=== PATIENT | female | born 2000 | race Caucasian/White ===

== ENCOUNTER 2018-07-29 14:40 | Outpatient (CLI) | payer OTHER, MEDICAID, SELFPAY ==
[2017-05-11 03:22] VITALS: BMI 20.6
[2018-07-29 15:02] VITALS: BMI 24.0
[2018-07-29 15:28] LABS: ROM Internal Control Test YES-OK TO RESULT pt. (Internal QC); ROM Patient Test Negative (Negative)
--- NOTE | 2018-07-30 00:35 | OB.TRI.NOTE ---
History of Present Illness Was patient seen by the physician?: No Reason For Visit: RULE OUT LABOR Date of Service: 07/29/18 Final DANIELE: 08/04/18 Gestational age: 39 Weeks and 2 Days Allergies No Known Allergies Allergy (Verified 07/29/18 15:04) Laboratory Studies: Laboratory Tests 07/29/18 Range/Units 15:00 Vag Amniotic Fld Detect Negative (Negative) NST - FHR Rate Baby A Baseline: 135 Variability:: Moderate Accelerations:: 15 x 15 Decelerations:: Variable NST Reactive:: Yes Uterine Activity:: irregular
== END 2018-07-29 16:00 | disposition home or self-care (01) ==
LOC: WPOUT 14:48 → WP 14:48
PROVIDERS: Referring Provider Obstetrics & Gynecology; Visit Provider Obstetrics & Gynecology
DX: O47.1 False labor at or after 37 completed weeks of gestation (principal); O76 Abnormality in fetal heart rate and rhythm complicating labor and delivery; Z3A.39 39 weeks gestation of pregnancy
CPT/HCPCS: 59025; 59050; 84112; 99218; G0378

== ENCOUNTER 2018-08-04 15:05 | Inpatient (IN) | payer OTHER, MEDICAID, SELFPAY ==
[2018-08-04] MEDS: Lactated Ringers 1,000 ML 50 ML IV ×2 (15:30→18:17)
[2018-08-04] MEDS: Lactated Ringers 1,000 ML 200 ML IV (15:30)
[2018-08-04 16:09] VITALS: BMI 24.1
--- NOTE | 2018-08-04 16:28 | PCM.HP.OB ---
History Date of Admission: 08/04/18 Final DANIELE: 08/04/18 Final DANIELE Source: US <20 weeks Gestational age: 40 Weeks and 0 Days History of this : This is a 18 year-old, G 1P0 @ 40 wks c/o contractions- pt was found to be in labor- admitted to L&D Allergies No Known Allergies Allergy (Verified 08/04/18 16:10) Smoking Status: Former smoker Alcohol: None Number of Fetus(es): 1 Heart Tracin mod reema, + accels no decels TOCO Analysis: q2-3 min History Past Pregnancies: Past Pregnancies Delivery Date Name GA/Weeks Outcome Route Weight Gender Labor Length Anesthesia Delivery Location Provider FOB Labs: GBS neg, Rub imm, syphilis non reactive, hep b neg, hiv neg, A+ Expected Infant Delivery Method: Spontaneous Vaginal Review of Systems Constitutional: Reports: Anorexia Cardiovascular: Denies: Chest Pain Gastrointestinal: Reports: Abdominal Pain - from contractions Physical Exam General: Alert, Oriented x3 Abdomen: Soft, Non Tender, Gravid Neurological: Cranial nerves II-XII grossly intact 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
--- NOTE | 2018-08-04 16:32 | HP.PCM_ITS ---
History Date of Admission: 08/04/18 Final DANIELE: 08/04/18 Final DANIELE Source: US <20 weeks Gestational age: 40 Weeks and 0 Days History of this : This is a 18 year-old, G 1P0 @ 40 wks c/o contractions- pt was found to be in labor- admitted to L&D Allergies No Known Allergies Allergy (Verified 08/04/18 16:10) Smoking Status: Former smoker Alcohol: None Number of Fetus(es): 1 Heart Tracin mod reema, + accels no decels TOCO Analysis: q2-3 min History Past Pregnancies: Past Pregnancies Delivery Date Name GA/Weeks Outcome Route Weight Gender Labor Length Anesthesia Delivery Location Provider FOB Labs: GBS neg, Rub imm, syphilis non reactive, hep b neg, hiv neg, A+ Expected Infant Delivery Method: Spontaneous Vaginal Review of Systems Constitutional: Reports: Anorexia Cardiovascular: Denies: Chest Pain Gastrointestinal: Reports: Abdominal Pain - from contractions Physical Exam General: Alert, Oriented x3 Abdomen: Soft, Non Tender, Gravid Neurological: Cranial nerves II-XII grossly intact 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
[2018-08-04 16:42] LABS: Hematocrit 32.7 % (37-47); Hemoglobin 11.2 g/dl (12.0-15.0); Mean Corp Hgb Conc 34.3 g/gl (32-36); Mean Corpuscular Hgb 32.1 pg (27.0-32.0); Mean Corpuscular Volume 93.7 fL (81-99); Mean Platelet Vol. 9.4 fl (6.2-12.0); Platelet Count 257 K/mm3 (150-450); RBC Distribution Width CV 13.6 % (11.6-14.6); RBC Distribution Width SD 46.6 fl (35.1-43.9); Red Blood Count 3.49 M/mm3 (4.2-5.4); White Blood Count 13.2 K/mm3 (4.4-11.0)
[2018-08-04 16:46] LABS: Scan Indicated on CBC? Y/N NO
[2018-08-04] MEDS: Nalbuphine 10 MG/ML Ampul IV (16:48)
[2018-08-04] MEDS: Oxytocin 30 units/NS 500 ml 30 UNITS/500 ML IV.SOLN 334 UNITS IV (19:50)
[2018-08-04] MEDS: Methylergonovine 0.2 MG/ML Ampul IM (19:52)
--- NOTE | 2018-08-04 20:03 | PCM.OB.VAG ---
Vaginal Delivery Maternal Presentation: Active Labor Amniotic Membrane Rupture Type: Artificial Amniotic Fluid Description: Clear Final DANIELE: 08/04/18 Gestational age: 40 Weeks and 0 Days Date of Procedure: 08/04/18 Pre-Operative Diagnosis: spontaneous labor, term gestation Post-Operative Diagnosis: same, live female infant Surgery/ Procedure Performed: Spontaneous Vaginal Delivery Type of Anesthesia: None Description of Procedure: of live female infant born without complication. compound presentation noted- Body cord x 1- delivered without reducing. Delayed cord clamping x approx 30seconds - taken to warmer for further stimulation. Presentation: Vertex Placental Delivery Description: Spontaneous Placenta Disposition: [facility] Cord Vessel Description: 3 Vessels Cord Entanglement: - - body cord x 1 Estimated Blood Loss: 400 Infant A gender: Female (1 minute): 8 (5 minute): 9 Episiotomy Description: None Laceration: Vaginal Extension/lac - repaired with 2-0 vicryl and 3-0 rapide, 2nd degree Medications given after delivery: IV Pitocin, IM Methergin Complications: None
[2018-08-04] MEDS: Oxytocin 30 units/NS 500 ml 30 UNITS/500 ML IV.SOLN 167 UNITS IV (20:20)
[2018-08-04] MEDS: Ibuprofen 600 MG Tablet PO (21:55)
[2018-08-05] VITALS: BP 102/55; PULSE 96; RESP 16; TEMP 37.4; O2SAT 96
[2018-08-05] MEDS: Ibuprofen 600 MG Tablet PO ×3 (03:52→16:17)
[2018-08-05 04:00] VITALS: BP 94/57; PULSE 63; RESP 16; TEMP 36.9; O2SAT 97
--- NOTE | 2018-08-05 09:07 | PCM.PN.OB ---
Subjective: pt seen at bedside, doing well. pain controlled. lochia mild. breast feeding. - Physical Exam General: Alert, Oriented x3 Abdomen: Soft, Non-Distended, - - fundus firm Extremities: No Calf Tenderness Vital Signs Temp Pulse Resp BP Pulse Ox 98.4 F 63 16 94/57 L 97 08/05/18 04:00 08/05/18 04:00 08/05/18 04:00 08/05/18 04:00 08/05/18 04:00 Oxygen Delivery Method Room Air Weight: 65.771 kg Body Mass Index (BMI) 24.1 Intake and Output for Last 24 Hours 08/03/18 08/04/18 08/05/18 23:59 23:59 23:59 Intake Total 2900 / 2900 Output Total 250 / 250 Balance 2650 / 2650 Laboratory Tests Past 24 Hrs 08/04/18 08/04/18 15:30 15:30 WBC 13.2 H RBC 3.49 L Hgb 11.2 L Hct 32.7 L MCV 93.7 MCH 32.1 H MCHC 34.3 RDW 13.6 RDW Differential 46.6 H Plt Count 257 MPV 9.4 Blood Type A POSITIVE Antibody Screen NEGATIVE Medical Necessity - Tobacco Use Smoking Status: Former smoker Assessment/Plan PPD#1, doing well routine care pain mgmt
[2018-08-05 09:36] VITALS: BP 94/53; PULSE 91; RESP 16; TEMP 37.7; O2SAT 95
--- NOTE | 2018-08-05 11:03 | DCINST_ITS ---
Discharge Diet: No Restrictions Discharge Activity: Return to Normal Activity, May not drive while taking narcotic pain medications., May Shower May resume sexual activity in: 4-6 weeks Additional Activity Instructions:: Nothing in the vagina for 4-6 weeks. You may return to work/school in 6 weeks. Call your doctor if your incision/area has: Continuous Slow Oozing, Sudden Increased Bleeding, Increased Pain/ Swelling, Increased Redness, Foul Smelling Discharge Additional Instructions: If you experience any of the following, contact your healthcare provider. * Bleeding that soaks a pad every hour for 2 hours * Fever 100.4 or higher * Unrelieved incision or abdominal pain * Swelling, redness, discharge or bleeding from your incision or episiotomy site * Your incision begins to separate * Problems urinating (including inability to urinate or burning while urinating). * Visual changes * Severe headache * Flu-like symptoms * Pain or redness in one of both of your breasts * Pain, warmth, tenderness or swelling in your legs, especially the calf area * Frequent nausea and vomiting * Symptoms of depression or anxiety If you experience any of the following, call 911 or go to the nearest Emergency Room. * Chest pain * Problems breathing * Seizure activity * Partial or complete paralysis of a body part, slurred speech, weakness or drooping of the face, or a sudden inability to walk or hold your balance Allergies/Adverse Reactions: Allergies No Known Allergies Allergy (Verified 08/04/18 16:10) Medications to take at Discharge Ibuprofen [Motrin] 600 mg PO Q6H PRN PRN #30 tab 08/05/18 The following prescriptions were given: Ibuprofen [Motrin] 600 mg PO Q6H PRN PRN #30 tab PRN Reason: Mild Pain (-10/28) When: Call to make an appointment with your doctor in 6 weeks. If you had elevated Blood Pressure or 4th degree laceration you will need to be seen in 2 weeks. Primary Care Physician: Care Physician,No Primary [Primary Care Provider] - Test Results: Test results from this visit will be discussed in further detail at your follow- up appointment, if applicable.
[2018-08-05] MEDS: oxyCODONE 5 MG Tablet PO (13:12)
[2018-08-05 13:15] VITALS: BP 100/60; PULSE 95; TEMP 36.9; O2SAT 96
[2018-08-05 16:20] VITALS: BP 107/62; PULSE 87; RESP 16; TEMP 37.2; O2SAT 99
[2018-08-05 20:00] VITALS: BP 104/56; PULSE 77; RESP 18; TEMP 37; O2SAT 96
[2018-08-05] MEDS: Dibucaine 30 GM Tube 1 APPLIC TOPICAL (21:13)
[2018-08-05] MEDS: Acetaminophen 500 MG Tablet 1000 MG PO (21:15)
[2018-08-05] MEDS: Senna/Docusate Sodium 1 Tablet PO (21:15)
[2018-08-06 02:49] VITALS: BP 101/55; PULSE 79; RESP 16; TEMP 36.8; O2SAT 98
[2018-08-06] MEDS: Ibuprofen 600 MG Tablet PO (09:00)
--- NOTE | 2018-08-06 09:07 | PCM.PROGNOTE ---
Subjective: Doing well per patient and nursing staff. without difficulty. Voiding and passing flatus. Denies headache, visual changes, chest pain, SOB, increased vaginal bleeding or clots. Pain controlled. Planning D/C home today. - Physical Exam General: Alert, Oriented x3, Cooperative HEENT: Atraumatic, Normocephalic Lungs: Clear to auscultation, No rhonchi, No wheeze Cardiovascular: Regular rate, Regular Rhythm, No murmurs Abdomen: Bowel Sounds Present, - - Fundus firm 2 below U Extremities: No edema, - - Srini's negative Psych/Mental Status: Normal Affect, Appropriate Vital Signs Temp Pulse Resp BP Pulse Ox 98.2 F 79 16 101/55 L 98 08/06/18 02:49 08/06/18 02:49 08/06/18 02:49 08/06/18 02:49 08/06/18 02:49 Oxygen Delivery Method Room Air Weight: 145 lb Body Mass Index (BMI) 24.1 Intake and Output for Last 24 Hours 08/04/18 08/05/18 08/06/18 23:59 23:59 23:59 Intake Total 2900 / 2900 Output Total 250 / 250 Balance 2650 / 2650 Medical Necessity - Tobacco Use Smoking Status: Former smoker Assessment/Plan A:PPD #2 P: 1) Routine PP and discharge orders given 2) D/C home today 3) Follow up in 2 week and 6 weeks
[2018-08-06 09:10] VITALS: BP 102/47; PULSE 83; RESP 18; TEMP 37
--- NOTE | 2018-08-06 10:50 | NURSING ---
pt c/o nipple pain when nursing, nipples sore and bruised and slightly reddened. Lansinol cream given, Bibi Pena IBCLC consulted for assistance in latching. Latch observed by this RN, wide open mouth latch with lips flanged, hearing gulping and swallowing with feed. Encouragement given to mother. Also discussed self expression of colostrum to rub on nipples to assist with soreness and healing.
[2018-08-06 12:32] VITALS: BP 102/47; PULSE 83; RESP 20; TEMP 37.1
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
--- NOTE | 2018-08-06 15:16 | CASEMGMT ---
Social Work Labor and Delivery Unit See previous social work note this date for details of assessment. MOB was given these resources: [facility] resource [place] [facility] depression packet including online resources and local counseling options WIC applications [facility] brochure. No other services requested or indicated. -LUCIO Tubbs, LATRINE CLEANER
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
== END 2018-08-06 13:40 | disposition home or self-care (01) | DRG 806 ==
PROVIDERS: Admitting Provider Obstetrics & Gynecology; Visit Provider Obstetrics & Gynecology
DX: O32.6XX0 Maternal care for compound presentation, not applicable or unspecified (principal); O71.4 Obstetric high vaginal laceration alone; Z37.0 Single live birth; O69.82X0 Labor and delivery complicated by other cord entanglement, without compression, not applicable or unspecified; Z3A.40 40 weeks gestation of pregnancy; Z87.891 Personal history of nicotine dependence
CPT/HCPCS: 59025; 59050; 85027; 86850; 86900; 99218; J7120; G0378

== ENCOUNTER 2020-09-29 22:40 | Inpatient (IN) | payer OTHER, MEDICAID, SELFPAY ==
[2020-09-29 21:17] VITALS: BP 108/64; PULSE 102; TEMP 37.6; O2SAT 99
[2020-09-29 21:22] VITALS: BMI 25.1
[2020-09-29 22:56] VITALS: BP 110/64; PULSE 88; TEMP 36.6
[2020-09-29] MEDS: 0.9% Saline Lock 10 ML Syringe IV (22:58)
[2020-09-29] MEDS: Ondansetron 4 MG/2 ML Vial IV (22:58)
[2020-09-29] MEDS: Lactated Ringers 1,000 ML 50 ML IV (22:59)
[2020-09-29 23:27] VITALS: PULSE 87; O2SAT 97
[2020-09-29 23:29] LABS: Absolute Lymphocyte Count 1.64 X10^3/uL (0.83-4.51); Absolute Neutrophil Count 9.5 X10^3/uL (2.0-7.7); Basophil# 0.03 X10^3/uL; Basophil% 0.2 % (0-1); Eosinophil# 0.05 X10^3/uL; Eosinophils% 0.4 % (0-5); Hemoglobin 9.8 g/dL (12.0-15.0); Lymphocyte # 1.64 X10^3/ul (4.0); Lymphocyte % 13.3 % (19-41); Mean Corp Hgb Conc 32.7 g/dL (32-36); Mean Corpuscular Volume 91.7 fL (81-99); Mean Platelet Vol. 9.5 fl (6.2-12.0); Monocyte# 0.88 X10^3/uL; Monocyte% 7.2 % (0-10); NRBC Flagged by Analyzer 0 % (0-5); Neutrophil # 9.49 X10^3/uL (2.7-7.7); Neutrophil % 77.2 % (47-70); Platelet Count 257 K/mm3 (150-450); RBC Distribution Width CV 13.4 % (11.6-14.6); RBC Distribution Width SD 45.1 fl (35.1-43.9); Red Blood Count 3.27 M/mm3 (4.2-5.4); White Blood Count 12.3 K/mm3 (4.4-11.0)
[2020-09-29 23:31] VITALS: PULSE 112; O2SAT 96
--- NOTE | 2020-09-29 23:37 | PCM.HP.OB ---
History Date of Admission: 09/29/20 Final DANIELE: 10/03/20 Gestational age: 39 Weeks and 3 Days History of this : This is a 20 year-old, G 2P1, at 39 weeks gestational age presents in active labor Allergies No Known Allergies Allergy (Verified 07/29/18 15:04) Home Medications: Home Medications Vits [Prenatabs FA] 1 tablet PO DAILY 07/29/18 Smoking Status: Never smoker Alcohol: None NST - FHR Rate Baby A Baseline: 145 Variability:: Moderate Accelerations:: 15 x 15 Decelerations:: None NST Reactive:: Yes FHR Category:: Category I Uterine Activity:: 2-4 History Past Pregnancies: Past Pregnancies Delivery Date Name GA/ Weeks Outcome Route Wt Sex Labor Length Anesthesia Delivery Location Provider FOB Review of Systems Constitutional: Denies: Anorexia HEENT: Denies: Difficulty Hearing Cardiovascular: Denies: Chest Pain Respiratory: Denies: Shortness of breath upon exertion Gastrointestinal: Reports: Abdominal Pain - from contractions Physical Exam Vitals: Vital Signs Temp Pulse BP Pulse Ox 97.9 F 112 H 110/64 96 09/29/20 22:56 09/29/20 23:31 09/29/20 22:56 09/29/20 23:31 General: Alert, Oriented x3 Abdomen: Non Tender, Gravid Neurological: Cranial nerves II-XII grossly intact 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
[2020-09-30] VITALS (21 sets, daily range): BP systolic 91–107; BP diastolic 52–61; PULSE 69–99; RESP 16–18; TEMP 36.4–37.3; O2SAT 93–100
[2020-09-30] MEDS: Oxytocin 30 units/NS 500 ml 30 UNITS/500 ML IV.SOLN 334 UNITS IV (00:06)
--- NOTE | 2020-09-30 00:19 | PCM.OPRPT ---
Vaginal Delivery Maternal Presentation: Active Labor Amniotic Membrane Rupture Type: Artificial Amniotic Fluid Description: Clear Final DANIELE: 10/03/20 Final DANIELE Source: US <20 weeks Gestational age: 39 Weeks and 4 Days Date of Procedure: 09/30/20 - 0004 Pre-Operative Diagnosis: term gestation, active labor Post-Operative Diagnosis: same, live male infant Surgery/ Procedure Performed: Spontaneous Vaginal Delivery Type of Anesthesia: None Description of Procedure: of a live male . Good maternal pushing efforts delivered the head followed - anterior shoulder was not delivering with gentle downward traction, legs in berkley and suprapubic on maternal right was given- combined with gentle downward traction for delivery of the anterior shoulder. Followed by the rest the 's body. was placed on the mother's chest for immediate skin the skin. Delayed cord clamping was performed. Apgars were 9 and 9. Placenta was delivered intact. Second-degree vaginal laceration appreciated it was repaired with 2-0 Vicryl. Local anesthesia was given 1% lidocaine 15 cc prior to repair. Presentation: Vertex Placental Delivery Description: Spontaneous Placenta Disposition: [facility] Cord Vessel Description: 3 Vessels Cord Entanglement: None Estimated Blood Loss: 300 Infant A gender: Male (1 minute): 9 (5 minute): 9 Episiotomy Description: None Laceration: Vaginal Extension/lac - repaired with 2-0 vicryl, 2nd degree Medications given after delivery: IV Pitocin Complications: None
--- NOTE | 2020-09-30 08:21 | PCM.PN.OB ---
Subjective: The patient is doing well. Pain is well controlled. Ambulating and voiding without difficulty. Tolerating regular diet without nausea or vomiting. She denies lightheadedness, dizziness, chest pain, shortness of breath, leg pain. Lochia normal. - Physical Exam Vitals/I&O's: Vital Signs Temp Pulse Resp BP Pulse Ox 99.0 F 99 18 104/54 L 99 09/30/20 04:26 09/30/20 04:26 09/30/20 04:25 09/30/20 04:26 09/30/20 02:20 Oxygen Delivery Method Room Air Weight: 151 lb Body Mass Index (BMI) 25.1 Intake and Output for Last 24 Hours 09/28/20 09/29/20 09/30/20 23:59 23:59 23:59 Intake Total 554.17 / 554.17 Output Total 1050 / 1050 Balance -495.83 / -495.83 General: Alert, No apparent distress HEENT: Atraumatic Abdomen: Soft, Non Tender, Non-Distended Extremities: No edema, No Calf Tenderness Skin: No rashes Neurological: Neuro grossly intact Psych/Mental Status: Normal Affect, Appropriate Microbiology Past 72 Hours 09/29/20 22:50 Mucosa - Nose SARS-CoV-2 Antigen (Rapid) - Final Laboratory Results 09/29/20 22:50: WBC 12.3 H, RBC 3.27 L, Hgb 9.8 L, Hct 30.0 L, MCV 91.7, MCH 30.0, MCHC 32.7, RDW Std Deviation 45.1 H, RDW Coeff of Laea 13.4, Plt Count 257, MPV 9.5, Immature Gran % (Auto) 1.700 H, Neut % (Auto) 77.2 H, Lymph % (Auto) 13.3 L, [place] % (Auto) 7.2, Eos % (Auto) 0.4, Baso % (Auto) 0.2, Absolute Neuts (auto) 9.5 H, Absolute Lymphs (auto) 1.64, Nucleated RBC % 0 09/29/20 22:50: Blood Type A POSITIVE, Antibody Screen NEGATIVE Current Medications Acetaminophen (Acetaminophen 500 Mg Tablet) 1,000 mg PO Q8H PRN PRN PRN Reason: Pain Score 1-3 Bisacodyl (Bisacodyl 10 Mg Suppository) 10 mg RC UD PRN PRN Reason: If no BM Dibucaine (Dibucaine 30 Gm Tube) 1 applic TOPICAL TID PRN PRN; Protocol PRN Reason: Discomfort Hydrocortisone (Hydrocortisone 2.5% Crm) 1 applic TOPICAL TID PRN PRN; Protocol PRN Reason: Discomfort Ibuprofen (Ibuprofen 600 Mg Tablet) 600 mg PO Q6H PRN PRN PRN Reason: Pain Score 1-3 Methylergonovine Maleate (Methylergonovine 0.2 Mg/Ml Ampul) 0.2 mg IM X1 PRN PRN Reason: Excess bleeding/uterine atony Ondansetron HCl (Ondansetron 4 Mg/2 Ml Vial) 4 mg IV Q4H PRN PRN PRN Reason: Nausea Oxycodone HCl (Oxycodone 5 Mg Tablet) 5 - 10 mg PO Q4H PRN PRN PRN Reason: Pain Score 4-10 Senna/Docusate Sodium (Senna/Docusate Sodium 1 Tablet) 1 - 2 tablet PO DAILY PRN PRN PRN Reason: Constipation Simethicone (Simethicone 80 Mg Tablet) 80 mg PO PCHS PRN PRN Reason: Indigestion/Stomach pain Sodium Chloride (0.9% Saline Lock 10 Ml Syringe) 5 - 15 ml IV UD PRN PRN Reason: SALINE FLUSH Medical Necessity - Tobacco Use Smoking Status: Never smoker Assessment/Plan S/p . Doing well. Dispo: Routine care and anticipate d/c home tomorrow.
[2020-09-30] MEDS: Ibuprofen 600 MG Tablet PO (10:02)
[2020-09-30] MEDS: Acetaminophen 500 MG Tablet 1000 MG PO (17:54)
[2020-10-01 01:19] VITALS: BP 90/54; PULSE 77
[2020-10-01] MEDS: Ibuprofen 600 MG Tablet PO ×2 (01:25→09:17)
[2020-10-01 01:41] VITALS: BP 90/54; PULSE 76; RESP 16; TEMP 36.7
--- NOTE | 2020-10-01 08:51 | PCM.PN.OB ---
Subjective: Patient seen at bedside. . Pain controlled. Ambulating and voiding without difficulty. Requesting to be discharged home today. - Physical Exam Vitals/I&O's: Vital Signs Temp Pulse Resp BP Pulse Ox 98.0 F 76 16 90/54 L 98 10/01/20 01:41 10/01/20 01:41 10/01/20 01:41 10/01/20 01:41 09/30/20 15:56 Oxygen Delivery Method Room Air Weight: 151 lb Body Mass Index (BMI) 25.1 Intake and Output for Last 24 Hours 09/29/20 09/30/20 10/01/20 23:59 23:59 23:59 Intake Total 554.17 / 554.17 Output Total 1050 / 1050 Balance -495.83 / -495.83 General: Alert, Oriented x3 Oral: Moist Mucosa Lungs: Normal air movement Abdomen: Soft, Non Tender Skin: No rashes Neurological: Cranial nerves II-XII grossly intact Microbiology Past 72 Hours 09/29/20 22:50 Mucosa - Nose SARS-CoV-2 Antigen (Rapid) - Final Current Medications Acetaminophen (Acetaminophen 500 Mg Tablet) 1,000 mg PO Q8H PRN PRN PRN Reason: Pain Score 1-3 Last Admin: 09/30/20 17:54 Dose: 1,000 mg Documented by: Bisacodyl (Bisacodyl 10 Mg Suppository) 10 mg RC UD PRN PRN Reason: If no BM Dibucaine (Dibucaine 30 Gm Tube) 1 applic TOPICAL TID PRN PRN; Protocol PRN Reason: Discomfort Hydrocortisone (Hydrocortisone 2.5% Crm) 1 applic TOPICAL TID PRN PRN; Protocol PRN Reason: Discomfort Ibuprofen (Ibuprofen 600 Mg Tablet) 600 mg PO Q6H PRN PRN PRN Reason: Pain Score 1-3 Last Admin: 10/01/20 01:25 Dose: 600 mg Documented by: Methylergonovine Maleate (Methylergonovine 0.2 Mg/Ml Ampul) 0.2 mg IM X1 PRN PRN Reason: Excess bleeding/uterine atony Ondansetron HCl (Ondansetron 4 Mg/2 Ml Vial) 4 mg IV Q4H PRN PRN PRN Reason: Nausea Oxycodone HCl (Oxycodone 5 Mg Tablet) 5 - 10 mg PO Q4H PRN PRN PRN Reason: Pain Score 4-10 Senna/Docusate Sodium (Senna/Docusate Sodium 1 Tablet) 1 - 2 tablet PO DAILY PRN PRN PRN Reason: Constipation Simethicone (Simethicone 80 Mg Tablet) 80 mg PO PCHS PRN PRN Reason: Indigestion/Stomach pain Sodium Chloride (0.9% Saline Lock 10 Ml Syringe) 5 - 15 ml IV UD PRN PRN Reason: SALINE FLUSH Medical Necessity - Tobacco Use Smoking Status: Never smoker Assessment/Plan PPD #1 2nd degree Pain management Breast feeding support Anticipate discharge home today
--- NOTE | 2020-10-01 08:54 | DCINST_ITS ---
Discharge Diet: No Restrictions May resume sexual activity in: 6-8 weeks Additional Instructions: If you experience any of the following, contact your healthcare provider. * Bleeding that soaks a pad every hour for 2 hours * Fever 100.4 or higher * Unrelieved incision or abdominal pain * Swelling, redness, discharge or bleeding from your incision or episiotomy site * Your incision begins to separate * Problems urinating (including inability to urinate or burning while urinating). * Visual changes * Severe headache * Flu-like symptoms * Pain or redness in one of both of your breasts * Pain, warmth, tenderness or swelling in your legs, especially the calf area * Frequent nausea and vomiting * Symptoms of depression or anxiety If you experience any of the following, call 911 or go to the nearest Emergency Room. * Chest pain * Problems breathing * Seizure activity * Partial or complete paralysis of a body part, slurred speech, weakness or drooping of the face, or a sudden inability to walk or hold your balance Allergies/Adverse Reactions: Allergies No Known Allergies Allergy (Verified 07/29/18 15:04) Medications to take at Discharge Vits [Prenatabs FA ] 1 tablet PO DAILY 07/29/18 When: 2 weeks virtual visit/ 6 weeks in office Primary Care Physician: Care Physician,No Primary [Primary Care Provider] - Test Results: Test results from this visit will be discussed in further detail at your follow- up appointment, if applicable.
--- NOTE | 2020-10-01 08:54 | PCM.DCVAG ---
Discharge Diet: No Restrictions May resume sexual activity in: 6-8 weeks Additional Instructions: If you experience any of the following, contact your healthcare provider. Bleeding that soaks a pad every hour for 2 hours Fever 100.4 or higher Unrelieved incision or abdominal pain Swelling, redness, discharge or bleeding from your incision or episiotomy site Your incision begins to separate Problems urinating (including inability to urinate or burning while urinating). Visual changes Severe headache Flu-like symptoms Pain or redness in one of both of your breasts Pain, warmth, tenderness or swelling in your legs, especially the calf area Frequent nausea and vomiting Symptoms of depression or anxiety If you experience any of the following, call 911 or go to the nearest Emergency Room. Chest pain Problems breathing Seizure activity Partial or complete paralysis of a body part, slurred speech, weakness or drooping of the face, or a sudden inability to walk or hold your balance Allergies/Adverse Reactions: Allergies No Known Allergies Allergy (Verified 07/29/18 15:04) Medications to take at Discharge Vits [Prenatabs FA ] 1 tablet PO DAILY 07/29/18 When: 2 weeks virtual visit/ 6 weeks in office Primary Care Physician: Care Physician,No Primary [Primary Care Provider] - Test Results: Test results from this visit will be discussed in further detail at your follow-up appointment, if applicable.
[2020-10-01 09:00] VITALS: BP 93/55; PULSE 77; RESP 16; TEMP 37
[2020-10-01] MEDS: Senna/Docusate Sodium 1 Tablet PO (09:17)
[2020-10-01 09:20] VITALS: BP 93/55; PULSE 77
[2020-10-01 14:39] VITALS: BP 120/65; PULSE 75
== END 2020-10-01 13:10 | disposition home or self-care (01) | DRG 807 ==
LOC: WPOUT 22:42 → WP 22:42
PROVIDERS: Admitting Provider Obstetrics & Gynecology; Visit Provider Obstetrics & Gynecology
DX: O70.1 Second degree perineal laceration during delivery (principal); Z37.0 Single live birth; Z3A.39 39 weeks gestation of pregnancy
CPT/HCPCS: 59025; 59050; 85025; 86850; 86900; 86901; 87426; J7120; A4216; J2405

== ENCOUNTER 2023-01-01 09:05 | Inpatient (IN) | payer BC, MEDICAID, SELFPAY ==
[2023-01-01] VITALS (17 sets, daily range): BP systolic 95–118; BP diastolic 51–65; PULSE 67–90; RESP 14; TEMP 36.2–37.7; O2SAT 76–98; BMI 24.9
--- NOTE | 2023-01-01 09:33 | PCM.HP.OB ---
HPI - General General Date of Admission: 01/01/23 Date of Service: 01/01/23 HPI Narrative CHANDU MORALES, is a 22 F who presents with ctxs & possible LOF. Maternal Data Information Final DANIELE: 12/27/22 Gestational age: 40&5 PFSH [facility] Medical History (Updated 01/01/23 @ 11:34 by Clementina Turner) Anemia Chlamydia infection affecting Depression affecting Family history of hearing loss at age younger than 7 years History of depression HSV (herpes simplex virus) infection Home Medications acyclovir 400 mg tablet 400 mg PO TID hsv 01/01/23 [History Last Taken 1 Day Ago ~12/31/22] ferrous sulfate 325 mg (65 mg iron) tablet 325 mg PO QODAY anemia 01/01/23 [History Last Taken 2 Weeks Ago ~12/18/22] Allergy/AdvReac Type Severity Reaction Status Date / Time No Known Allergies Allergy Verified 01/01/23 11:40 Surgical History [place] teeth extracted Social History Smoking Status: Former smoker History Elective abortions Hx Para 2 Spontaneous abortions Hx # Term Pregnancies Ectopic pregnancies Hx # Pregnancies Multiple births # of living children Vital Signs Vital Signs Vital Signs: 01/01/23 09:08 01/01/23 09:08 01/01/23 09:08 Temperature Temperature Source Pulse Rate 85 Blood Pressure 109/65 BP Systolic 109 BP Diastolic 65 Pulse Ox 97 01/01/23 09:06 01/01/23 09:06 Temperature 99.8 F H Temperature Source Tympanic Pulse Rate Blood Pressure BP Systolic BP Diastolic Pulse Ox Physical Exam Const alert, oriented x3 and no apparent distress GI soft to palpation, non-tender and non-distended Inspection: gravid external exam normal Narrative: cvx - 5/80/-1 Extremity no calf tenderness Labs Labs Labs: Blood Type A POSITIVE Antibody Screen NEGATIVE Hct 35.5 % (37-47) L Hgb 11.9 g/dL (12.0-15.0) L Syphilis Total Ab Non-reactive Rhogam given: No See [facility] H&P Assessment & Plan (1) Post term over 40 weeks: COMMENT: 40&5 (2) HSV (herpes simplex virus) infection: (3) History of depression: PLAN: Plan Admit to L&D Expectant management GBS negative Pain - declines epidural at this time EFW - less than 4500g, patient with adequate pelvis
[2023-01-01 09:43] LABS: ROM Internal Control Test YES-OK TO RESULT pt. (Internal QC)
[2023-01-01 09:45] LABS: ROM Patient Test POSITIVE (Negative)
[2023-01-01] MEDS: LACTATED RINGERS 500 ML 999 ML IV (09:55)
[2023-01-01 10:10] LABS: Absolute Lymphocyte Count 1.47 X10^3/uL (0.83-4.51); Absolute Neutrophil Count 10.6 X10^3/uL (2.0-7.7); Basophil# 0.04 X10^3/uL; Basophil% 0.3 % (0-1); Eosinophil# 0.04 X10^3/uL; Eosinophils% 0.3 % (0-5); Hematocrit 35.5 % (37-47); Hemoglobin 11.9 g/dL (12.0-15.0); Lymphocyte # 1.47 X10^3/ul (0.83-4.51); Lymphocyte % 10.9 % (19-41); Mean Corp Hgb Conc 33.5 g/dL (32-36); Mean Corpuscular Hgb 32.6 pg (27.0-32.0); Mean Corpuscular Volume 97.3 fL (81-99); Mean Platelet Vol. 9.5 fl (6.2-12.0); Monocyte# 0.73 X10^3/uL; Monocyte% 5.4 % (0-10); NRBC Flagged by Analyzer 0 % (0-5); Neutrophil # 10.64 X10^3/uL (2.7-7.7); Neutrophil % 78.5 % (47-70); POSITIVE MORPHOLOGY YES; Platelet Count 259 K/mm3 (150-450); RBC Distribution Width CV 14.6 % (11.6-14.6); RBC Distribution Width SD 51.7 fl (35.1-43.9); Red Blood Count 3.65 M/mm3 (4.2-5.4); White Blood Count 13.5 K/mm3 (4.4-11.0)
[2023-01-01 10:24] LABS: Differential Indicated SCAN CRITERIA MET
[2023-01-01] MEDS: Lactated Ringers 1,000 ML 200 ML IV (10:26)
[2023-01-01 10:44] LABS: Syphilis Antibodies Non-reactive
[2023-01-01 11:38] LABS: Differential Comment SCANNED
--- NOTE | 2023-01-01 12:50 | EX.PCM.OBRPT ---
Maternal Data Information Final DANIELE: 12/27/22 Gestational age: 40&5 Vaginal Delivery Maternal Presentation Maternal Presentation: Active Labor Operative Information Date of Procedure: 01/01/23 Pre-Operative Diagnosis: Labor Post-Operative Diagnosis: Labor Surgery / Procedure Performed: Spontaneous Vaginal Delivery Type of Anesthesia: None Estimated Blood Loss: 300ml Findings Description of Procedure: Patient prepped & draped when C/C/+2. She pushed well to deliver the head. head gently guided to allow delivery of anterior and posterior shoulders. No excess traction placed on head. Body delivered and 3VC clamped & cut in delayed fashion. Placenta delivered with gentle traction and good uterine tone obtained. Presentation: ROJAS Amniotic Membrane Rupture Type: Spontaneous Amniotic Fluid Description: Clear Placental Delivery Description: Expressed Placenta Disposition: [facility] Specimen(s) Removed: Placenta Cord Vessel Description: 3 Vessels Cord Entanglement: None Infant A Gender: Female (December) (1 minute): 8 (5 minute): 9 Delayed Cord Clamping: Yes Post Vaginal Delivery Medications Given After Delivery: IV Pitocin and IM Pitocin Episiotomy Description: None Laceration: 1st degree (perineal laceration - repaired with 3-0 vicryl) Complication Complications: None
[2023-01-01] MEDS: Oxytocin 10 UNITS/ML Vial IM (13:08)
[2023-01-01] MEDS: Oxytocin 15 Units/NS 250ml 15 UNITS/250 ML IV.SOLN 83 UNITS IV (13:11)
[2023-01-01] MEDS: Ibuprofen 600 MG Tablet PO ×2 (14:33→22:29)
[2023-01-01] MEDS: 0.9% Saline Lock 10 ML Syringe IV (16:12)
[2023-01-01] MEDS: Acetaminophen 500 MG Tablet 1000 MG PO ×2 (16:38→23:51)
[2023-01-02 03:51] VITALS: BP 97/54; PULSE 72; TEMP 36.6
[2023-01-02] MEDS: Ibuprofen 600 MG Tablet PO (06:40)
[2023-01-02 08:10] VITALS: BP 102/56; PULSE 70; RESP 15; TEMP 37; O2SAT 97
[2023-01-02 08:11] VITALS: BP 102/56; PULSE 73
--- NOTE | 2023-01-02 08:27 | PN.OBGYN_ITS ---
Subjective Subjective Doing well per patient and nursing staff. Ambulating and taking PO without difficulty. Voiding and passing flatus. Pain controlled. , services for assistance. Denies headache, visual changes, chest pain, shortness of breath, leg pain or increased bleeding. Lochia normal. Objective Data Objective Data Vital Signs: Vital Signs Temp Pulse Resp BP Pulse Ox O2 Del Method 97.9 F 73 14 102/56 L 97 Room Air 01/02/23 03:51 01/02/23 08:11 01/01/23 23:38 01/02/23 08:11 01/02/23 08:10 01/02/23 03:51 Oxygen Delivery Method Room Air Weight: 149 lb 14.629 oz Body Mass Index (BMI) 24.9 Intake & Output: Intake and Output for Last 24 Hours 12/31/22 01/01/23 01/02/23 23:59 23:59 23:59 Intake Total 3403.33 / 3403.33 Output Total 800 / 800 Balance 2603.33 / 2603.33 Lab / Micro Data Result Diagrams: 01/01/23 09:55 Labs: Laboratory Results - last 24 hr 01/01/23 09:05: Vag Amniotic Fld Detect POSITIVE H 01/01/23 09:55: WBC 13.5 H, RBC 3.65 L, Hgb 11.9 L, Hct 35.5 L, MCV 97.3, MCH 32.6 H, MCHC 33.5, RDW Std Deviation 51.7 H, RDW Coeff of Alea 14.6, Plt Count 259, MPV 9.5, Immature Gran % (Auto) 4.600 H, Neut % (Auto) 78.5 H, Lymph % (Auto) 10.9 L, [place] % (Auto) 5.4, Eos % (Auto) 0.3, Baso % (Auto) 0.3, Absolute Neuts (auto) 10.6 H, Absolute Lymphs (auto) 1.47, Nucleated RBC % 0, Differential Comment SCANNED 01/01/23 09:55: Blood Type A POSITIVE, Antibody Screen NEGATIVE 01/01/23 09:55: Syphilis Total Ab Non-reactive Physical Exam Const alert and oriented x3 General Appearance: cooperative Orientation / Consciousness: awake, oriented to person, oriented to place and oriented to time Exam Limitations: no limitations HEENT normocephalic Head and Scalp: normal to inspection, normocephalic and atraumatic Face and Sinus: normal facial exam Eyes General Eye: normal appearance of both eyes Neck full ROM Chest Chest: symmetrical chest wall rise Resp normal respiratory effort and normal air movement Auscultation: clear to auscultation bilaterally Cardio regular rate, regular rhythm, S1 normal heart sound, S2 normal heart sound, no murmurs, no rub, no gallops and no clicks GI normal to inspection, nondistended, normoactive bowel sounds and non-tender appearance of the vagina normal Bladder / Kidney Exam: no CVA tenderness Back/Spine normal ROM Extremity normal to inspection and full ROM Skin no rashes or lesions noted Neuro oriented x3, CN's II-XII intact bilaterally and moves all extremities Sensorium / Orientation: awake, alert and oriented to person Motor Exam: clonus absent Deep Tendon Reflexes: Rt Patellar (L4): 2+ and Lt Patellar (L4): 2+ Assessment & Plan (1) Vaginal delivery: PLAN: Plan 1) Routine PP care 2) VSS 3) Pain management 4) D/C home 5) Follow up in 2 weeks virtually and 6 weeks PP
--- NOTE | 2023-01-02 08:29 | PCM.DC.SUM ---
Providers Date of Admission: 01/01/23 Primary Care Physician: Estelita Leavitt CNM Reason For Visit: VAGINAL DELIVERY Diagnosis Discharge Diagnosis (1) Vaginal delivery: Status: Acute Code(s): O80 - Encounter for full-term uncomplicated delivery Plan 1) Routine PP care 2) VSS 3) Pain management 4) D/C home 5) Follow up in 2 weeks virtually and 6 weeks PP Medications at Discharge Home Medications acyclovir 400 mg tablet 400 mg PO TID hsv 01/01/23 ferrous sulfate 325 mg (65 mg iron) tablet 325 mg PO QODAY anemia 01/01/23 acetaminophen 500 mg tablet 1,000 mg PO Q6H PRN PRN Pain 1-10 Or Fever #0 tabs 01/02/23 ibuprofen 600 mg tablet 600 mg PO Q6H PRN PRN Pain Score 1-3 #0 tabs 01/02/23 Weight / BMI Weight Weight: 149 lb 14.629 oz Body Mass Index (BMI) 24.9 ABG / Lab / Microbiology Data Result Diagrams: 01/01/23 09:55 Laboratory: Laboratory Results - last 24 hr 01/01/23 09:05: Vag Amniotic Fld Detect POSITIVE H 01/01/23 09:55: WBC 13.5 H, RBC 3.65 L, Hgb 11.9 L, Hct 35.5 L, MCV 97.3, MCH 32.6 H, MCHC 33.5, RDW Std Deviation 51.7 H, RDW Coeff of Alea 14.6, Plt Count 259, MPV 9.5, Immature Gran % (Auto) 4.600 H, Neut % (Auto) 78.5 H, Lymph % (Auto) 10.9 L, [place] % (Auto) 5.4, Eos % (Auto) 0.3, Baso % (Auto) 0.3, Absolute Neuts (auto) 10.6 H, Absolute Lymphs (auto) 1.47, Nucleated RBC % 0, Differential Comment SCANNED 01/01/23 09:55: Blood Type A POSITIVE, Antibody Screen NEGATIVE 01/01/23 09:55: Syphilis Total Ab Non-reactive Meaningful Use Info Meaningful Use Diagnoses (Choose all that apply): None applicable Discharge Plan Admission Admit Date/Time: 01/01/23 09:05 Primary Reason for Your Visit: Vaginal Delivery Attending Provider: Magda Ricketts Primary Care Provider: Estelita Leavitt Discharge Orders/Prescriptions Prescriptions: New acetaminophen 500 mg Tablet 1,000 mg PO Q6H PRN PRN (Reason: Pain 1-10 Or Fever) Qty: 0 0RF ibuprofen 600 mg Tablet 600 mg PO Q6H PRN PRN (Reason: Pain Score 1-3) Qty: 0 0RF Continued acyclovir 400 mg tablet 400 mg PO TID Label Comments: TAKE 1 TABLET BY MOUTH THREE TIMES A DAY No Action ferrous sulfate 325 mg (65 mg iron) tablet 325 mg PO QODAY Label Comments: TAKE 1 TABLET BY MOUTH EVERY OTHER DAY Referrals / Follow Up: Estelita Leavitt CNM [Primary Care Provider] - Disposition Disposition (needs filled in before D/C Order can be placed): Home, Self Care
[2023-01-02] MEDS: Acetaminophen 500 MG Tablet 1000 MG PO (09:21)
[2023-01-02 13:10] VITALS: BP 101/59; PULSE 16; RESP 16; TEMP 36.6; O2SAT 98
[2023-01-02 13:33] VITALS: BP 101/59; PULSE 71
--- NOTE | 2023-01-02 15:36 | CASEMGMT ---
Social Work Assessment Labor and Delivery Unit Patient Address: [facility] [address] Phone number: [phone] Date of Referral: 01/02/23 Referred By: Dr. Man Date of Intervention: 01/02/2023 Time of Intervention: 1:45 Reason for Referral: Hx of PPD History obtained from: medical records and mother of baby (MOB) Household composition: MOB, FOB (Cosmo Kincaid), 2 yr old boy and 4 year old girl Patient's parent/guardian status: MOB and FOB are unmarried but have been in a relationship for 6-7 years. Both are the parents of the 2 year old and 4 year old in the household. Medical History: MOB reports 2 previous pregnancies and deliveries. MOB denies any medical issues. MOB noted to have HSV infection. Baby girl, Dorothea May, 9lbs and 8/9 apgars. Baby is noted as having exposure to viral disease but otherwise no health concerns at this time. ? Educational Status: No literacy concerns Financial Status: No financial concerns Infant Supplies: MOB notes having a car seat and crib/bassinet and all other necessary supplies for baby. Childcare/Caregiver(s): MOB, GOB and aunts Transportation: No transportation concerns Programs/Agencies Involved: None Children Services/Legal Issues: No history of CPS/current legal concerns Behavioral Health Issues: ?MOB denies any mental health concerns currently. MOB reports a history of post- depression with previous children. MOB denies family history of mental illness. MOB denies history or current use of drugs. Family/Social Stressors: Denies family concerns/stressors Support Systems: MOB reports her mother and sisters are very supportive. Depression: Education provided and resources given. MOB receptive. Shaken Baby: Education provided and MOB receptive. Safe Sleeping: Education provided and MOB receptive. ASSESSMENT: MOB appropriate and has no concerns at this time. Provided with resource list for [facility]. PLAN: No other services requested or indicated. Cindy Rascon [employer], [employer]
== END 2023-01-02 15:18 | disposition home or self-care (01) | DRG 806 ==
PROVIDERS: Admitting Provider Obstetrics & Gynecology; PCP Advanced Practice Midwife; Visit Provider Obstetrics & Gynecology
DX: O48.0 Post-term pregnancy (principal); Z37.0 Single live birth; O98.52 Other viral diseases complicating childbirth; Z87.891 Personal history of nicotine dependence; B00.9 Herpesviral infection, unspecified; Z86.59 Personal history of other mental and behavioral disorders; Z3A.40 40 weeks gestation of pregnancy
CPT/HCPCS: 59025; 59050; 84112; 85025; 86780; 86850; 86900; 86901; 99221; J7120; A4216; G0378